=== PATIENT | female | born 1950 | race Caucasian/White ===

== ENCOUNTER 2019-05-31 13:32 | Outpatient (RCR) | payer OTHER ==
[~2019-05-31 13:32] MED LIST: ACIPHEX20 MG PO; AMLODIPINE BESY10 MG PO; ATENOLOL50 MG PO; BYSTOLIC20 MG PO; COQ-10100 MG PO; FUROSEMIDE20 MG PO; HYDRALAZINE HCL25 MG PO; HYDROCHLOROTHIA25 MG PO; IBUPROFEN PO; IRBESARTAN300 MG PO; POTASSIUM CHLO10 ME1 PO; PRAVASTATIN SOD40 MG PO; PRISTIQ ER50 MG PO; PROAIR HFA INH8.5 GM; TYLENOL PO; VENLAFAXINE HCL75 MG PO
== END 2019-06-03 ==
LOC: PT 13:32
PROVIDERS: ATTEND Specialist
DX: S13.4XXA Sprain of ligaments of cervical spine, initial encounter (principal); M62.81 Muscle weakness (generalized); M54.2 Cervicalgia